=== PATIENT | male | born 1955 | race Caucasian/White ===

== ENCOUNTER 2017-01-16 23:15 | Emergency (ER) | payer OTHER ==
[~2017-01-16 23:15] MED LIST: ADVIL PO; GLUCPH8 PO; ZESTORETIC PO; ZOL50 PO
[2017-01-16 23:49] LABS: BASOPHILS 0.4 %; BASOPHILS ABSOLUTE 0.04 10/3/uL (0.0-0.16); EOSINOPHILS 4.1 %; EOSINOPHILS ABSOLUTE 0.37 10/3/uL (0.0-0.53); ER CBC TAT 0 Hrs 08 Mins; HEMATOCRIT 39.2 % (40.0-51.0); HEMOGLOBIN 12.7 g/dL (13.6-17.8); IMMATURE GRANULOCYTES 0.6 %; IMMATURE GRANULOCYTES ABSOLUTE 0.05 10/3/uL (0.0-0.11); LYMPHOCYTES 23.2 %; LYMPHOCYTES ABSOLUTE 2.09 10/3/uL (0.67-4.30); MEAN CORPUS HGB CONC 32.4 g/dL (32.0-36.0); MEAN CORPUSCULAR HEMOGLOB 28.7 pg (26.0-34.0); MEAN CORPUSCULAR VOLUME 88.7 fL (80-100); MEAN PLATELET VOLUME 9.8 fL (9.2-13.0); MONOCYTES 6.6 %; MONOCYTES ABSOLUTE 0.59 10/3/uL (0.21-1.20); NEUTROPHILS 65.1 %; NEUTROPHILS ABSOLUTE 5.86 10/3/uL (2.02-8.40); PLATELET COUNT 223 10/3/uL (150-400); RBC DISTRIBUTION WIDTH 16.1 % (12.0-16.0); RED CELL COUNT 4.42 10/6/uL (4.7-6.1)
[2017-01-16 23:50] LABS: MANUAL DIFF NO %
[2017-01-17 00:14] LABS: BUN (BLOOD UREA NITROGEN) 17 MG/DL (6-23); CALCIUM, SERUM 8.8 MG/DL (8.5-10.4); CHLORIDE, SERUM 109 MMOL/L (96-112); CO2 (CARBON DIOXIDE) 23 MMOL/L (24-34); CREATININE 1.14 MG/DL (0.70-1.30); GFR AFRICAN AMERICAN 79 ML/MIN (>=60); GFR NON AFRICAN AMERICAN 68 ML/MIN (>=60); PARTIAL THROMBO TIME 29.3 SEC (22.5-37.2); POTASSIUM, SERUM 4.4 MMOL/L (3.5-5.3); SODIUM, SERUM 140 MMOL/L (135-148); TROPONIN I 0.03 NG/ML (<0.05)
[2017-01-17 00:15] LABS: CHEST PAIN PROFILE TAT 0 Hrs 33 Mins; GLUCOSE, SERUM 160 MG/DL (60-99); INTERNATIONAL NORMAL RATI 1.1 UNITS (-); PROTIME (NOT ORD) 14.3 SEC (12.0-14.5)
[2017-02-11] MEDS ORDERED: ASAB PO (16:13)
[2017-02-11] MEDS ORDERED: COREG6 PO (16:13)
[2017-02-11] MEDS ORDERED: L40 PO (16:14)
[2017-02-11] MEDS ORDERED: MAGOX4 PO (16:14)
[2017-02-11] MEDS ORDERED: PRIN20 PO (16:14)
[2017-02-11] MEDS ORDERED: KLONO1 PO (16:14)
[2017-02-11] MEDS ORDERED: NITROQUICK0.4 MG SL (16:15)
[2017-02-11] MEDS ORDERED: MICRO-K10 MEQ PO (16:15)
[2017-02-11] MEDS ORDERED: GLUCPH PO (16:15)
[2017-02-11] MEDS ORDERED: VENTOLIN HFA INH (16:16)
[2017-02-11] MEDS ORDERED: MIRAPEX5 PO (16:16)
[2017-02-11] MEDS ORDERED: IRON PO (16:17)
[2017-02-11] MEDS ORDERED: MULTIPLE VIT PO (16:17)
[2017-02-13] MEDS ORDERED: BRILINTA90 MG PO (16:32)
[2017-02-13] MEDS ORDERED: LIPITOR40 PO (16:32)
[2017-02-13] MEDS ORDERED: PLAVIX PO (16:32)
== END 2017-01-17 02:25 | disposition home or self-care (01) ==
LOC: ER 23:15
PROVIDERS: Emergency Medicine
DX: I11.0 Hypertensive heart disease with heart failure (principal); I50.9 Heart failure, unspecified; I25.2 Old myocardial infarction; Z79.84 Long term (current) use of oral hypoglycemic drugs; Z79.899 Other long term (current) drug therapy
CPT/HCPCS: 71020; 80048; 83735; 83880; 84484; 85025; 85610; 85730; 93005; 96374; 99285